=== PATIENT | male | born 1935 ===

== ENCOUNTER → 2021-03-27 10:36 | Outpatient (CLI) | payer MEDICARE, BC, SELFPAY ==
[2021-03-27 11:56] LABS: Add Manual Diff / Slide Review NO; Basophils Absolute Auto 0 /uL (0-100); Basophils Percent Auto 0.2 % (0-2); Eosinophils Absolute Auto 0 /uL (0-450); Eosinophils Percent Auto 0.2 % (2-4); Hematocrit 33.7 % (41-53); Hemoglobin 11.4 g/dL (13.5-17.5); Lymphocytes Absolute Auto 1100 /uL (1100-4500); Lymphocytes Percent Auto 40.8 % (25-40); Mean Corpuscular HGB Conc 33.7 % (30-36); Mean Corpuscular Hemoglobin 33.3 PG (26-34); Mean Corpuscular Volume 98.7 fL (80-100); Monocytes Absolute Auto 500 /uL (0-900); Monocytes Percent Auto 17.8 % (3-14); Neutrophils Absolute Auto 1100 /uL (1500-7000); Platelet Count 105 X10^3/uL (150-400); Red Blood Cell Count 3.41 X10^6/uL (4.5-5.9); Red Cell Distribution Width 14.3 % (11.6-14.8); White Blood Cell Count 2.6 X10^3/uL (4.5-11.0)
[2021-03-27 12:07] LABS: Hemoglobin A1C% w Est Avg Glu 5.5 % (4.0-6.0)
[2021-03-27 12:13] LABS: High Sensitivity CRP - Cardiac 0.9 mg/L (1.0-3.0)
[2021-03-27 12:35] LABS: Prostate Specific Antigen 1.07 ng/mL (0.10-4.00)
[2021-03-27 12:43] LABS: Estradiol, Total 8.3 pg/mL
[2021-03-27 12:59] LABS: Vitamin D 25 Hydroxy (D3) 80.5 ng/mL (30.0-100.0)
[2021-03-27 13:02] LABS: Free T3, Triiodothyronine Free 1.93 pg/mL (2.77-5.27); Free T4, Direct Thyroxine 0.57 ng/dL (0.78-2.19)
[2021-03-27 13:15] LABS: Thyroid Stimulating Hormone 3.23 uIU/mL (0.47-4.68)
[2021-03-27 16:02] LABS: Alanine Aminotransferase 23 IU/L (<50); Albumin 4.5 g/dL (3.5-5.0); Albumin Globulin Ratio 1.6 (1.0-2.8); Alkaline Phosphatase 67 U/L (38-126); Aspartate Aminotransferase 34 IU/L (17-59); BUN Creatinine Ratio 28.2 (6-22); Bilirubin Total 0.8 mg/dL (0.2-1.3); Blood Urea Nitrogen 20 mg/dL (9-20); Calcium 9.1 mg/dL (8.4-10.2); Carbon Dioxide 18 mmol/L (22-32); Chloride 110 mmol/L (98-107); Cholesterol 151 mg/dL (140-199); Estimated Glomerular Filt Rate > 60.0 mL/min (>60); Globulin 2.9 g/dL (1.7-4.1); Glucose 95 mg/dL (80-110); HDL Cholesterol 46 mg/dL (40-60); HEMOLYSIS < 15 (0-50); LDL Cholesterol Calculated 78 mg/dL (<100); Magnesium 2.3 mg/dL (1.6-2.3); Potassium 3.9 mmol/L (3.4-5.1); Sodium 139 mmol/L (137-145); Total Protein 7.4 g/dL (6.3-8.2); Triglycerides 134 mg/dL (35-150)
[2021-03-27 17:51] LABS: Bacteria Urine None Seen; RBC Urine None Seen (0-5/HPF)
[2021-03-27 18:10] LABS: Appearance Urine UA CLEAR; Bilirubin Urine UA NEGATIVE (NEGATIVE); Color Urine UA YELLOW; Glucose Urine UA NEGATIVE (Negative); Ketones Urine UA NEGATIVE (NEGATIVE); Leukocyte Esterase Urine UA NEGATIVE (NEGATIVE); Nitrite Urine UA NEGATIVE (Negative); Occult Blood Urine UA NEGATIVE (Negative); Protein Urine UA NEGATIVE (Negative); Urobilinogen Urine UA 0.2 E.U./dL (0.2)
[2021-03-27 18:17] LABS: Amorphous Sediment Urine 1+; Culture Indicated Urine Cult Not Indicated; Mucus Urine 1+ (Negative); Squamous Epithelial Cell Urine 0-1 /HPF (0-5/HPF); WBC Urine 0-1/HPF (0-5/HPF)
[2021-03-28 06:17] LABS: Homocysteine 14.8 umol/L (0.0-21.3)
[2021-03-28 07:49] LABS: Dehydroepiandrosterone Sulfate 21.5 ug/dL (20.8-226.4); Insulin Level Total 6.4 uIU/mL (2.6-24.9)
[2021-03-30 12:11] LABS: Dihydrotestosterone 1.6 ng/dL (.)
[2021-04-01 17:23] LABS: Triiodothyronine T3 Reverse 13.2 ng/dL (9.2-24.1)
[2021-04-04 10:58] LABS: Percent Free Testosterone 3.22 % (1.50-4.20); Testosterone Free 0.46 ng/dL (5.00-21.00); Testosterone Total 14.2 ng/dL (264.0-916.0)
== END ==
PROVIDERS: PCP Family Medicine; Referring Provider Family Medicine; Visit Provider Family Medicine
DX: I48.20 Chronic atrial fibrillation, unspecified (principal); I10 Essential (primary) hypertension; R73.01 Impaired fasting glucose; C61 Malignant neoplasm of prostate; E55.9 Vitamin D deficiency, unspecified; R53.83 Other fatigue; E03.9 Hypothyroidism, unspecified; I67.9 Cerebrovascular disease, unspecified; D64.9 Anemia, unspecified; Z00.01 Encounter for general adult medical examination with abnormal findings; C84.90 Mature T/NK-cell lymphomas, unspecified, unspecified site
CPT/HCPCS: 36415; 80053; 80061; 81001; 82306; 82542; 82627; 82642; 82670; 83036; 83090; 83525; 83735; 84153; 84402; 84403; 84439; 84443; 84481; 84482; 85025; 86140